=== PATIENT | male | born 1970 | race Caucasian/White ===

== ENCOUNTER 2017-03-13 17:04 | Emergency (ER) | payer OTHER ==
[2017-03-13 17:11] VITALS: RESP 18; O2SAT 98
--- NOTE | 2017-03-13 17:27 | C.PDOC ---
History Of Present Illness 46 y/o male presents to the ED with complains of intermittent, sharp shooting pain to groin which onset today. Pain radiates to right abdomen. Pt reports similar symptoms in the past with kidney stones. Denies fever, chills, dysuria, hematuria, nausea, vomiting, dizziness or any other complaints. Time Seen by Provider: 03/13/17 17:17 Chief Complaint (Nursing): Male Genitourinary History Per: Patient History/Exam Limitations: no limitations Onset/Duration Of Symptoms: Hrs, Intermittent Episodes Current Symptoms Are (Timing): Still Present Severity: Severe Quality Of Discomfort: Sharp Associated Symptoms: denies: Fever, Chills, Nausea, Vomiting, Back Pain, Urinary Symptoms Alleviating Factors: None Recent travel outside of the [place]: No Past Medical History Reviewed: Historical Data, Nursing Documentation, Vital Signs Vital Signs: Last Vital Signs Temp 97.6 F 03/13/17 17:08 Pulse 73 03/13/17 17:08 Resp 18 03/13/17 17:08 BP 131/82 03/13/17 17:08 Pulse Ox 98 03/13/17 18:30 Family History: States: Unknown Family Hx Review Of Systems Except As Marked, All Systems Reviewed And Found Negative. Constitutional: Negative for: Fever, Chills Gastrointestinal: Negative for: Nausea, Vomiting Genitourinary: Positive for: Other (groin pain radiating to right abdomen). Negative for: Dysuria, Hematuria Musculoskeletal: Negative for: Back Pain Neurological: Negative for: Dizziness Physical Exam - Physical Exam Appears: Non-toxic, No Acute Distress Skin: Warm, Dry, No Rash Head: Atraumatic, Normacephalic Chest: Symmetrical Cardiovascular: Rhythm Regular, No Murmur Respiratory: Normal Breath Sounds, No Rales, No Rhonchi, No Wheezing Gastrointestinal/Abdominal: Soft, Tenderness (mild RLQ), No Guarding, No Rebound Back: No CVA Tenderness Male Genital: Testicular Tenderness (mild bilateral), No Testicular Swelling, No Inguinal Swelling, No Scrotal Swelling, Other (Mild right groin tenderness, no swelling or redness. No penile discharge.) Extremity: Normal ROM Extremity: Bilateral: Atraumatic Neurological/Psych: Oriented x3 ED Course And Treatment - Laboratory Results Result Diagrams: 03/13/17 17:47 03/13/17 17:47 O2 Sat by Pulse Oximetry: 98 (room air) Pulse Ox Interpretation: Normal - CT Scan/US CT abdomen Other Rad Studies (CT/US): Read By Radiologist, Radiology Report Reviewed CT/US Interpretation: EXAM: CT Abdomen and Pelvis Without Intravenous Contrast. CLINICAL HISTORY: 46 years old, male; Pain; Abdominal pain and other : Ho. Renal stone; Additional info: Abd pain. TECHNIQUE: Axial computed tomography images of the abdomen and pelvis without intravenous contrast. This. CT exam was performed using one or more of the following dose reduction techniques: automated. exposure control, adjustment of the mA and/or kV according to patient size, and/or use of iterative. reconstruction technique. Coronal and sagittal reformatted images were created and reviewed. COMPARISON: No relevant prior studies available. FINDINGS: Lower thorax: Lung bases show no pulmonary infiltration or lobar pneumonia. Lung bases show no. pulmonary infiltration or lobar pneumonia. ABDOMEN: Liver: Unremarkable liver is normal in attenuation without lesions. Unremarkable liver is normal in. attenuation without lesions. Gallbladder and bile ducts: The gallbladder is normal. Pancreas: Unremarkable pancreas, no lesions, surrounding fluid or inflammation. Unremarkable. pancreas, no lesions, surrounding fluid or inflammation. No ductal dilation. Spleen: Unremarkable. No splenomegaly. Adrenals: Adrenal glands are normal. Adrenal glands are normal. Kidneys and ureters: There is faint calcification in the medullary pyramids, consistent with medullary. sponge kidney. Right renal hilus demonstrates small calcific foci likely vascular in etiology. Calcific. focus is present the left kidney, likely a nonobstructing stone. Stomach and bowel: The stomach is normal without wall thickening or mucosal edema. Bowel loops. appear within normal limits, no signs of wall thickening, mucosal edema, or bowel distention. The. stomach is normal without wall thickening or mucosal edema. Appendix: A normal appendix is identified. A normal appendix seen in the right lower quadrant. PELVIS: Bladder: The bladder is decompressed but otherwise normal. No stones. Reproductive: Unremarkable as visualized. ABDOMEN and PELVIS: Intraperitoneal space: Unremarkable. No free air. No significant fluid collection. Bones/joints : No acute fracture. No dislocation. Soft tissues: Small fat-containing paraumbilical hernia is present. Vasculature: The aorta and IVC appear within normal limits. Lymph nodes: Unremarkable. No enlarged lymph nodes. IMPRESSION : No evidence for bowel herniation, bowel obstruction, colitis, appendicitis or diverticulitis. No gross ureteral stone or obstructive uropathy is visualized. Left nephrolithiasis. Bilateral mild nephrocalcinosis. Thank you for allowing us to participate in the care of your patient. Dictated and Authenticated by: Patric Peters MD. 03/13/2017 6:18 PM Eastern Time ([place] & [place]) Medical Decision Making Medical Decision Making: Differential dx: kidney stone, UTI, epididymal orchitis Plan: CT abdomen, labs, UA, IV fluids, motrin, tylenol Disposition - Disposition Referrals: Clinic,Med Surg [Primary Care Provider] - Rk Whitley Jr., MD [Staff Provider] - Disposition: HOME/ ROUTINE Disposition Time: 18:24 Condition: STABLE Prescriptions: Ibuprofen [Motrin] 600 mg PO TID #24 tab Tamsulosin [Flomax] 0.4 mg PO DAILY #10 cap Instructions: Renal Colic (ED), Acute Hematuria (ED) Forms: General Discharge Instructions - POA Present On Arrival: None - Clinical Impression Clinical Impression: Hematuria, Renal colic on right side - Scribe Statement The provider has reviewed the documentation as recorded by the Gayatri Luque Provider Attestation: All medical record entries made by the Gayatri were at my direction and personally dictated by me. I have reviewed the chart and agree that the record accurately reflects my personal performance of the history, physical exam, medical decision making, and the department course for this patient. I have also personally directed, reviewed, and agree with the discharge instructions and disposition.
[2017-03-13] MEDS ORDERED: Sodium Chloride 0.9% 1,000 ML IV ONE (17:34)
[2017-03-13 17:53] LABS: BASO # 0.1 K/uL (0.0-0.2); BASO % 1.3 % (0.0-2.0); EOS # 0.2 K/uL (0.0-0.7); EOS % 3.8 % (0.0-4.0); HEMATOCRIT 43.8 % (35.0-51.0); LYMPH # 1.8 K/uL (1.0-4.3); LYMPH % 41.6 % (20.0-40.0); MEAN CELL VOLUME 90.2 fL (80.0-94.0); MEAN CORPUSCULAR HEMOGLOBIN 30.4 pg (27.0-31.0); MEAN CORPUSCULAR HGB CONC 33.7 g/dL (33.0-37.0); MEAN PLATELET VOLUME 8.9 fL (7.2-11.7); MONO # 0.4 K/uL (0.0-0.8); MONO % 10.2 % (0.0-10.0); NRBC % 0.1 % (0.0-2.0); RED CELL DISTRIBUTION WIDTH 12.8 % (11.5-14.5); WHITE BLOOD COUNT 4.3 K/uL (4.8-10.8)
[2017-03-13 17:58] LABS: CHLORIDE 94 mmol/L (98-107); SODIUM 139 mmol/L (132-148)
[2017-03-13 18:01] LABS: ALB/GLOB RATIO 1.4 (1.0-2.1); ALKALINE PHOSPHATASE 56 U/L (38-126); AST/SGOT 32 U/L (17-59); BILIRUBIN,TOTAL 0.9 mg/dL (0.2-1.3); BLOOD UREA NITROGEN 16 mg/dL (9-20); CALCIUM 9.6 mg/dl (8.6-10.4); CARBON DIOXIDE 29 mmol/L (22-30); GFR AFRICAN-AMERICAN > 60; GLUCOSE,RANDOM 83 mg/dL (75-110); TOTAL PROTEIN 8.1 g/dL (6.3-8.3)
[2017-03-13 18:02] LABS: ALT/SGPT 25 U/L (21-72)
[2017-03-13 18:08] LABS: RBC URINE 488 /hpf (0-3); URINE BACTERIA RARE (<OCC); URINE BILIRUBIN NEGATIVE (NEGATIVE); URINE COLOR Yellow (YELLOW); URINE GLUCOSE (UA) NORMAL (Normal); URINE KETONE 1+ mg/dL (NEGATIVE); URINE LEUKOCYTE ESTERASE NEG Leu/uL (Negative); URINE PROTEIN 1+ mg/dL (NEGATIVE); URINE UROBILINOGEN NORMAL mg/dL (0.2-1.0); WBC URINE 2 /hpf (0-5)
[2017-03-13 18:09] LABS: URINE BLOOD 3+ (NEGATIVE)
[2017-03-13] MEDS ORDERED: Sodium Chloride 0.9% 1,000 ML ONE (18:10)
[2017-03-13 19:09] VITALS: BP 119/73; PULSE 61; TEMP 97.8
--- NOTE | 2017-03-14 08:25 | CT ---
PROCEDURE: CT Abdomen and Pelvis without intravenous contrast HISTORY: abd pain COMPARISON: None. TECHNIQUE: 2.5 mm axial acquisition and display. Coronal and sagittal reconstructions. Contrast Dose: Unenhanced study. Neither oral nor intravenous contrast administered. Radiation dose: Total exam DLP = 535.08 mGy-cm. This CT exam was performed using one or more of the following dose reduction techniques: Automated exposure control, adjustment of the mA and/or kV according to patient size, and/or use of iterative reconstruction technique. FINDINGS: LOWER THORAX: Unremarkable. LIVER: Unremarkable. No gross lesion or ductal dilatation. GALLBLADDER AND BILE DUCTS: Unremarkable. PANCREAS: Unremarkable. No gross lesion or ductal dilatation. SPLEEN: Unremarkable. ADRENALS: Unremarkable. No mass. KIDNEYS AND URETERS: Nephrocalcinosis. Innumerable tiny less than 2 mm calculi. Additional punctate calcification right renal collecting system. 5 x 6 mm calculus midpole region left kidney. VASCULATURE: Unremarkable. No aortic aneurysm. BOWEL: Unremarkable. No obstruction. No gross mural thickening. APPENDIX: Unremarkable. Normal appendix. PERITONEUM: Unremarkable. No free fluid. No free air. LYMPH NODES: Unremarkable. No enlarged lymph nodes. BLADDER: Unremarkable. REPRODUCTIVE: Unremarkable. BONES: No acute fracture. OTHER FINDINGS: None. IMPRESSION: Nephrolithiasis/nephrocalcinosis without evidence of obstructive uropathy. Concordant results (preliminary interpretation) provided by [employer]. Procedure Completed: 18:03 Preliminary ([employer]) Report: Dictated and Authenticated: 18:18 Final Interpretation: 08:23. March 14, 2017.
== END 2017-03-13 19:09 | disposition home or self-care (01) ==
LOC: SUPCPDRO 17:04 → C.ER 17:04
DX: N20.0 Calculus of kidney (principal); Z87.442 Personal history of urinary calculi; R31.9 Hematuria, unspecified
CPT/HCPCS: 74176; 80053; 81001; 85025; 96360; 99284; J7040

== ENCOUNTER 2017-03-14 04:08 | Observation (INO) | payer OTHER ==
--- NOTE | 2017-03-14 04:42 | C.PDOC ---
History Of Present Illness 46 year old male presents to the ED with right suprapubic and groin pain radiating to right testicle after being seen yesterday at [facility] ED for right sided abdominal pain and was diagnosed with kidney stones. Patient states pain mildly improved after the ED visit yesterday and took Motrin with no relief but denies vomiting, diarrhea, cough, fever, penile discharge, dysuria, or heamturia. Time Seen by Provider: 03/14/17 04:38 Chief Complaint (Nursing): Abdominal Pain History Per: Patient History/Exam Limitations: no limitations Onset/Duration Of Symptoms: Hrs Current Symptoms Are (Timing): Still Present Location Of Pain/Discomfort: Suprapubic, Other (groin and testicular area ) Radiation Of Pain To:: Other (right testicle ) Quality Of Discomfort: "Pain" Associated Symptoms: denies: Fever, Chills, Nausea, Vomiting, Diarrhea Past Medical History Reviewed: Historical Data, Nursing Documentation, Vital Signs Vital Signs: Last Vital Signs Temp 98 F 03/14/17 06:14 Pulse 72 03/14/17 06:14 Resp 18 03/14/17 06:14 BP 151/87 H 03/14/17 06:14 Pulse Ox 96 03/14/17 06:14 Family History: States: Unknown Family Hx - Social History Hx Alcohol Use: Yes Hx Substance Use: No - Immunization History Hx Tetanus Toxoid Vaccination: No Hx Influenza Vaccination: No Hx Pneumococcal Vaccination: No Review Of Systems Constitutional: Negative for: Fever, Chills, Sweats Cardiovascular: Negative for: Chest Pain, Palpitations Respiratory: Negative for: Cough, Shortness of Breath Gastrointestinal: Positive for: Abdominal Pain (right suprapubic, right groin pain). Negative for: Nausea, Vomiting, Diarrhea Genitourinary: Negative for: Dysuria, Hematuria, Penile Discharge Physical Exam - Physical Exam Appears: Non-toxic, No Acute Distress Skin: Warm, Dry Head: Atraumatic Eye(s): bilateral: PERRL Oral Mucosa: Moist Neck: Supple Chest: Symmetrical, No Deformity Cardiovascular: Rhythm Regular Respiratory: No Accessory Muscle Use, No Rales, No Rhonchi, No Stridor, No Wheezing Gastrointestinal/Abdominal: Soft, Tenderness (teenderness to right suprapubic, right inguinal, and testicular region ), No Distention, No Guarding, No Rebound , No Hernia (no buldge ) Back: No CVA Tenderness Extremity: Normal ROM, No Tenderness Neurological/Psych: Oriented x3 ED Course And Treatment - Laboratory Results Result Diagrams: 03/14/17 05:15 03/14/17 05:15 O2 Sat by Pulse Oximetry: 100 (room air ) Progress Note: Urinalysis, Testicular US ordered and performed. Patient given morphine and hydromorphone. Disposition Counseled Patient/Family Regarding: Diagnosis, Need For Followup, Rx Given - Disposition Disposition Time: 07:07 Condition: STABLE - Clinical Impression Clinical Impression: Testicular pain, right - Scribe Statement The provider has reviewed the documentation as recorded by the Scribe More Gan All medical record entries made by the Scribe were at my direction and personally dictated by me. I have reviewed the chart and agree that the record accurately reflects my personal performance of the history, physical exam, medical decision making, and the department course for this patient. I have also personally directed, reviewed, and agree with the discharge instructions and disposition. Physician Patient Turnover Patient Signed Over To: Nena Law Handoff Comments: Pending Testicular US
[2017-03-14] MEDS ORDERED: Sodium Chloride 0.9% 500 ML IV ONE (04:47)
[2017-03-14] MEDS ORDERED: Morphine 4 MG/ML VIAL ONE (05:01)
[2017-03-14] MEDS ORDERED: Sodium Chloride 0.9% 1,000 ML ONE ×2 (05:01→09:55)
[2017-03-14 05:18] LABS: BASO # 0.1 K/uL (0.0-0.2); BASO % 0.9 % (0.0-2.0); EOS # 0.2 K/uL (0.0-0.7); EOS % 3.5 % (0.0-4.0); HEMATOCRIT 42.9 % (35.0-51.0); LYMPH # 1.9 K/uL (1.0-4.3); MEAN CELL VOLUME 89.5 fL (80.0-94.0); MEAN CORPUSCULAR HEMOGLOBIN 30.5 pg (27.0-31.0); MEAN PLATELET VOLUME 8.8 fL (7.2-11.7); MONO # 0.5 K/uL (0.0-0.8); MONO % 7.5 % (0.0-10.0); RED CELL DISTRIBUTION WIDTH 12.8 % (11.5-14.5); WHITE BLOOD COUNT 6.6 K/uL (4.8-10.8)
[2017-03-14 05:34] LABS: CHLORIDE 98 mmol/L (98-107); POTASSIUM 3.7 mmol/L (3.6-5.2); SODIUM 137 mmol/L (132-148)
[2017-03-14 05:36] LABS: BILIRUBIN,TOTAL 0.2 mg/dL (0.2-1.3); GFR AFRICAN-AMERICAN > 60
[2017-03-14 05:37] LABS: ALB/GLOB RATIO 1.7 (1.0-2.1); ALKALINE PHOSPHATASE 55 U/L (38-126); ALT/SGPT 30 U/L (21-72); AST/SGOT 30 U/L (17-59); BLOOD UREA NITROGEN 19 mg/dL (9-20); CARBON DIOXIDE 27 mmol/L (22-30); GLUCOSE,RANDOM 88 mg/dL (75-110); TOTAL PROTEIN 7.8 g/dL (6.3-8.3)
[2017-03-14 05:38] LABS: CALCIUM 9.1 mg/dl (8.6-10.4)
[2017-03-14 08:58] LABS: RBC URINE 156 /hpf (0-3); URINE BILIRUBIN NEGATIVE (NEGATIVE); URINE BLOOD 3+ (NEGATIVE); URINE COLOR Yellow (YELLOW); URINE GLUCOSE (UA) NORMAL (Normal); URINE KETONE 1+ mg/dL (NEGATIVE); URINE LEUKOCYTE ESTERASE NEG Leu/uL (Negative); URINE PROTEIN NEGATIVE (NEGATIVE); URINE UROBILINOGEN NORMAL mg/dL (0.2-1.0); WBC URINE 1 /hpf (0-5)
[2017-03-14] MEDS ORDERED: Sodium Chloride 0.9% 1,000 ML IV ONE (09:35)
[2017-03-14] MEDS ORDERED: HYDROmorphone 1 mg/ml ISec IVP STA (09:35)
[2017-03-14] MEDS ORDERED: HYDROmorphone 1 mg/ml ISec ONE (09:54)
[2017-03-14] MEDS: Dextrose 5%/0.45% NS 1,000 ML IV SCH (11:12)
--- NOTE | 2017-03-14 11:13 | US ---
HISTORY: Right scrotal pain TECHNIQUE: Realtime sonography through the scrotum with color and doppler flow. COMPARISON: None Available. FINDINGS: RIGHT TESTICLE: Measures 2.1 x 4.9 cm. Normal echotexture and flow. RIGHT EPIDIDYMIS: Epididymal head measures 1.1 cm. Grossly unremarkable appearance with normal flow.Incidental finding(s): 4 mm epididymal cyst LEFT TESTICLE: Measures 2.2 x 4.7 cm. Normal echotexture and flow. LEFT EPIDIDYMIS: Epididymal head measures 1.3 x 1.5 cm. Grossly unremarkable appearance with normal flow.Incidental finding(s): Two simple epididymal cyst 4 x 5 mm and 4 x 6 mm. HYDROCELE: Bilateral, small right larger than left. VARICOCELE: None. OTHER FINDINGS: None. IMPRESSION: Negative study for epididymitis, orchitis or torsion. Additional benign and/or incidental findings described above.
--- NOTE | 2017-03-14 12:51 | CP.PCM.HP ---
History of Present Illness - History of Present Illness History of Present Illness: 46 years old male patient presents to the emergency department with complaint of right suprapubic and right-sided groin pain that radiates to right testicle. Patient was seen at the [facility] yesterday for right-sided abdominal pain and diagnosed with kidney stones. Patient took more train no pain relief and denies nausea, vomiting, fever, dysuria. Present on Admission - Present on Admission Any Indicators Present on Admission: No Past Patient History - Past Social History Smoking Status: Never Smoked - PSYCHIATRIC Hx Substance Use: No - SURGICAL HISTORY Hx Surgeries: Yes Other/Comment: sinus surgery - ANESTHESIA Hx Anesthesia: Yes Hx Anesthesia Reactions: No Meds Home Medications: Home Medication List Medication Instructions Recorded Confirmed Type Ibuprofen [Motrin Tab] 600 mg PO TID #90 tab 03/16/17 Rx Tamsulosin [Flomax] 0.4 mg PO DAILY #30 cap 03/16/17 Rx Allergies/Adverse Reactions: Allergies Allergy/AdvReac Type Severity Reaction Status Date / Time No Known Allergies Allergy Verified 03/16/17 22:46 Physical Exam - Constitutional Appears: Well - Head Exam Head Exam: ATRAUMATIC, NORMAL INSPECTION, NORMOCEPHALIC - Eye Exam Eye Exam: EOMI, Normal appearance, PERRL Pupil Exam: NORMAL ACCOMODATION, PERRL - ENT Exam ENT Exam: Mucous Membranes Moist, Normal Exam - Neck Exam Neck exam: Positive for: Normal Inspection - Respiratory Exam Respiratory Exam: Decreased Breath Sounds - Cardiovascular Exam Cardiovascular Exam: REGULAR RHYTHM, +S1, +S2 - GI/Abdominal Exam GI & Abdominal Exam: Diminished Bowel Sounds, Soft - Rectal Exam Rectal Exam: Deferred Results - Vital Signs Recent Vital Signs: Last Vital Signs Temp 98 F 03/14/17 06:14 Pulse 82 03/14/17 09:58 Resp 16 03/14/17 09:58 BP 128/76 03/14/17 09:58 Pulse Ox 97 03/14/17 09:58 - Labs Result Diagrams: 03/16/17 07:12 03/16/17 07:12 Assessment & Plan (1) Hematuria Status: Acute (2) Intractable pain Status: Acute (3) Kidney stone Status: Acute (4) Renal colic on right side Status: Acute (5) Renal colic on right side Status: Acute - Assessment and Plan (Free Text) Plan: protonix lovenox urology flomax urine culture no need fo rantbitoic as per urology ivfluid
[2017-03-14] MEDS ORDERED: HYDROmorphone 1 mg/ml ISec IVP SCH (14:00)
[2017-03-14] MEDS ORDERED: HYDROmorphone 1 mg/ml ISec IVP PRN (18:23)
[2017-03-14] MEDS: HYDROmorphone 1 mg/ml ISec IVP PRN (22:34)
[2017-03-15] MEDS: Dextrose 5%/0.45% NS 1,000 ML IV SCH ×3 (00:22→19:00)
[2017-03-15] MEDS: HYDROmorphone 1 mg/ml ISec IVP PRN ×5 (02:49→22:12)
[2017-03-15] MEDS: Pantoprazole 40 mg EC Tab PO SCH (09:25)
[2017-03-15 11:53] LABS: BASO % 0.5 % (0.0-2.0); EOS % 0.7 % (0.0-4.0); HEMATOCRIT 43.8 % (35.0-51.0); LYMPH # 0.8 K/uL (1.0-4.3); LYMPH % 12.7 % (20.0-40.0); MEAN CORPUSCULAR HEMOGLOBIN 30.7 pg (27.0-31.0); MEAN CORPUSCULAR HGB CONC 34.5 g/dL (33.0-37.0); MEAN PLATELET VOLUME 9.5 fL (7.2-11.7); MONO # 0.6 K/uL (0.0-0.8); MONO % 8.6 % (0.0-10.0); RED CELL DISTRIBUTION WIDTH 12.8 % (11.5-14.5); WHITE BLOOD COUNT 6.7 K/uL (4.8-10.8)
[2017-03-15 12:09] LABS: CHLORIDE 95 mmol/L (98-107)
[2017-03-15 12:10] LABS: POTASSIUM 3.7 mmol/L (3.6-5.2); SODIUM 137 mmol/L (132-148)
[2017-03-15 12:12] LABS: ALB/GLOB RATIO 1.2 (1.0-2.1); ALKALINE PHOSPHATASE 59 U/L (38-126); ALT/SGPT 24 U/L (21-72); AST/SGOT 33 U/L (17-59); BILIRUBIN,TOTAL 0.7 mg/dL (0.2-1.3); BLOOD UREA NITROGEN 11 mg/dL (9-20); CARBON DIOXIDE 31 mmol/L (22-30); GFR AFRICAN-AMERICAN > 60; GLUCOSE,RANDOM 105 mg/dL (75-110); TOTAL PROTEIN 8.2 g/dL (6.3-8.3)
[2017-03-15 12:13] LABS: CALCIUM 8.8 mg/dl (8.6-10.4)
--- NOTE | 2017-03-15 13:31 | CP.PCM.PN ---
Subjective - Date & Time of Evaluation Date of Evaluation: 03/15/17 Time of Evaluation: 13:31 - Subjective Subjective: 59 year old male with right sided flank pain was in er 03/13/17 dischareged returned with renewesd pain radiating ti groin us testicle neg for epididiidmitis or tosion.. pt continues to have severe pain. Suggest Repeat ct to see if stones have moved into obstructing position. Objective - Vital Signs/Intake and Output Vital Signs (last 24 hours): Temp Pulse Resp BP Pulse Ox 98.5 F 67 18 132/55 L 96 03/15/17 08:50 03/15/17 08:50 03/15/17 08:50 03/15/17 08:50 03/15/17 08:50 Intake and Output: 03/15/17 03/15/17 06:59 18:59 Intake Total 1220 Balance 1220 - Medications Medications: Current Medications Hydromorphone HCl (Dilaudid) 1 mg IVP Q4H PRN PRN Reason: Pain, moderate (4-7) Last Admin: 03/15/17 11:02 Dose: 1 mg Dextrose/Sodium Chloride (Dextrose 5%/0.45% Ns 1000 Ml) 1,000 mls @ 75 mls/hr IV .[id number] [facility] Last Admin: 03/15/17 00:22 Dose: 75 mls/hr Pantoprazole Sodium (Protonix Ec Tab) 40 mg PO DAILY [facility] Last Admin: 03/15/17 09:25 Dose: 40 mg Pneumococcal Polyvalent Vaccine (Pneumovax 23 Vaccine) 0.5 ml IM .ONCE ONE Stop: 03/16/17 10:01 - Labs Labs: 03/15/17 11:30 03/15/17 11:30
--- NOTE | 2017-03-15 14:04 | CP.PCM.PN ---
Subjective - Date & Time of Evaluation Date of Evaluation: 03/15/17 Time of Evaluation: 13:20 - Subjective Subjective: clinically same Objective - Vital Signs/Intake and Output Vital Signs (last 24 hours): Temp Pulse Resp BP Pulse Ox 98.5 F 67 18 132/55 L 96 03/15/17 08:50 03/15/17 08:50 03/15/17 08:50 03/15/17 08:50 03/15/17 08:50 Intake and Output: 03/15/17 03/15/17 06:59 18:59 Intake Total 1220 Balance 1220 - Medications Medications: Current Medications Hydromorphone HCl (Dilaudid) 1 mg IVP Q4H PRN PRN Reason: Pain, moderate (4-7) Last Admin: 03/15/17 11:02 Dose: 1 mg Dextrose/Sodium Chloride (Dextrose 5%/0.45% Ns 1000 Ml) 1,000 mls @ 75 mls/hr IV .[id number] [facility] Last Admin: 03/15/17 00:22 Dose: 75 mls/hr Pantoprazole Sodium (Protonix Ec Tab) 40 mg PO DAILY [facility] Last Admin: 03/15/17 09:25 Dose: 40 mg Pneumococcal Polyvalent Vaccine (Pneumovax 23 Vaccine) 0.5 ml IM .ONCE ONE Stop: 03/16/17 10:01 Tamsulosin HCl (Flomax) 0.4 mg PO DAILY [facility] Last Admin: 03/15/17 13:48 Dose: 0.4 mg - Labs Labs: 03/15/17 11:30 03/15/17 11:30 - Constitutional Appears: Well - Head Exam Head Exam: ATRAUMATIC, NORMAL INSPECTION, NORMOCEPHALIC - Eye Exam Eye Exam: EOMI, Normal appearance, PERRL Pupil Exam: NORMAL ACCOMODATION, PERRL - ENT Exam ENT Exam: Mucous Membranes Moist, Normal Exam - Neck Exam Neck Exam: Full ROM, Normal Inspection. absent: Lymphadenopathy - Respiratory Exam Respiratory Exam: Decreased Breath Sounds - Cardiovascular Exam Cardiovascular Exam: REGULAR RHYTHM, +S1, +S2 - GI/Abdominal Exam GI & Abdominal Exam: Soft, Diminished Bowel Sounds - Rectal Exam Rectal Exam: Deferred Assessment and Plan (1) Hematuria Status: Acute (2) Intractable pain Status: Acute (3) Kidney stone Status: Acute (4) Renal colic on right side Status: Acute (5) Renal colic on right side Status: Acute - Assessment and Plan (Free Text) Plan: Urology consult IV fluid Flomax Dilaudid Protonix Lovenox Urine culture
--- NOTE | 2017-03-15 14:47 | CP.PCM.PN ---
Subjective - Date & Time of Evaluation Date of Evaluation: 03/15/17 Time of Evaluation: 10:00 - Subjective Subjective: PGY2 on medicine Dr. Thorne service: Pt seen and examined at bedside this morning. Pt said his pain persisted at RLQ to right groin. Denied fever or chill. Objective - Vital Signs/Intake and Output Vital Signs (last 24 hours): Temp Pulse Resp BP Pulse Ox 98.5 F 67 18 132/55 L 96 03/15/17 08:50 03/15/17 08:50 03/15/17 08:50 03/15/17 08:50 03/15/17 08:50 Intake and Output: 03/15/17 03/15/17 06:59 18:59 Intake Total 1220 Balance 1220 - Medications Medications: Current Medications Hydromorphone HCl (Dilaudid) 1 mg IVP Q4H PRN PRN Reason: Pain, moderate (4-7) Last Admin: 03/15/17 11:02 Dose: 1 mg Dextrose/Sodium Chloride (Dextrose 5%/0.45% Ns 1000 Ml) 1,000 mls @ 75 mls/hr IV .[id number] [facility] Last Admin: 03/15/17 00:22 Dose: 75 mls/hr Pantoprazole Sodium (Protonix Ec Tab) 40 mg PO DAILY [facility] Last Admin: 03/15/17 09:25 Dose: 40 mg Pneumococcal Polyvalent Vaccine (Pneumovax 23 Vaccine) 0.5 ml IM .ONCE ONE Stop: 03/16/17 10:01 Tamsulosin HCl (Flomax) 0.4 mg PO DAILY [facility] Last Admin: 03/15/17 13:48 Dose: 0.4 mg - Labs Labs: 03/15/17 11:30 03/15/17 11:30 - Constitutional Appears: Non-toxic, No Acute Distress - Head Exam Head Exam: NORMOCEPHALIC - Eye Exam Eye Exam: Normal appearance - ENT Exam ENT Exam: Mucous Membranes Moist - Respiratory Exam Respiratory Exam: Clear to Ausculation Bilateral, NORMAL BREATHING PATTERN. absent: Rhonchi, Wheezes - Cardiovascular Exam Cardiovascular Exam: REGULAR RHYTHM, +S1, +S2. absent: Gallop, Rubs - GI/Abdominal Exam GI & Abdominal Exam: Guarding (RLQ), Soft, Tenderness (RLQ), Normal Bowel Sounds - Neurological Exam Neurological Exam: Alert, Awake, Oriented x3 - Psychiatric Exam Psychiatric exam: Normal Mood - Skin Skin Exam: Dry, Intact Assessment and Plan - Assessment and Plan (Free Text) Assessment: Suprapubic tenderness CT showed right nonobstructing 6mm stone per report. Testicular ultrasound showed simple epididymal cyst and bilateral hydrocele R>L per report. UA showed RBC and blood, no infection. Urology Dr. Whitley consulted, help appreciated. Dilaudid 1mg IV q4 PRN. Toradol 30mg IV q6 PRN. Flomax 0.4mg PO daily. F/U repeat CT. Prophylactic measure Protonix, SCD
--- NOTE | 2017-03-15 15:51 | CT ---
PROCEDURE: CT Abdomen and Pelvis without intravenous contrast HISTORY: renal colic begining after last ct COMPARISON: 03/13/2017 TECHNIQUE: Technique. Contrast Dose: Radiation dose: Total exam DLP = 470 mGy-cm. This CT exam was performed using one or more of the following dose reduction techniques: Automated exposure control, adjustment of the mA and/or kV according to patient size, and/or use of iterative reconstruction technique. FINDINGS: LOWER THORAX: Small left lower lobe infiltrate. LIVER: Unremarkable. No gross lesion or ductal dilatation. GALLBLADDER AND BILE DUCTS: Unremarkable. PANCREAS: Unremarkable. No gross lesion or ductal dilatation. SPLEEN: Unremarkable. ADRENALS: Unremarkable. No mass. KIDNEYS AND URETERS: Interval migration of a 2-3 millimeter calculus into the distal ureter. Associated right hydroureter and mild right hydronephrosis with perinephric and periureteral fat infiltration. Stable roughly 1 centimeter calculus in the mid left kidney. VASCULATURE: Unremarkable. No aortic aneurysm. BOWEL: Unremarkable. No obstruction. No gross mural thickening. APPENDIX: Unremarkable. Normal appendix. PERITONEUM: Unremarkable. No free fluid. No free air. LYMPH NODES: Unremarkable. No enlarged lymph nodes. BLADDER: Unremarkable. REPRODUCTIVE: Unremarkable. BONES: No acute fracture. OTHER FINDINGS: None. IMPRESSION: Interval migration of a 2-3 millimeter calculus into the distal ureter. Associated right hydroureter and mild right hydronephrosis with perinephric and periureteral fat infiltration. Stable roughly 1 centimeter calculus in the mid left kidney.
[2017-03-15] MEDS ORDERED: Moxifloxacin IV 400mg/250ml NS 400 MG/250 ML BAG IVPB SCH (19:00)
[2017-03-16 07:19] LABS: BASO # 0.1 K/uL (0.0-0.2); BASO % 1.6 % (0.0-2.0); EOS # 0.2 K/uL (0.0-0.7); LYMPH # 1.8 K/uL (1.0-4.3); MEAN CELL VOLUME 89.5 fL (80.0-94.0); MEAN CORPUSCULAR HEMOGLOBIN 30.4 pg (27.0-31.0); MEAN PLATELET VOLUME 8.9 fL (7.2-11.7); MONO # 0.6 K/uL (0.0-0.8); MONO % 11.1 % (0.0-10.0); NRBC % 0.1 % (0.0-2.0); RED CELL DISTRIBUTION WIDTH 12.9 % (11.5-14.5); WHITE BLOOD COUNT 5.2 K/uL (4.8-10.8)
--- NOTE | 2017-03-16 07:28 | CP.PCM.PN ---
Subjective - Date & Time of Evaluation Date of Evaluation: 03/16/17 Time of Evaluation: 10:00 - Subjective Subjective: PGY2 on medicine Dr. Thoren service: Pt seen and examined at bedside this morning. Pt reports pain improved with both Dilaudid and Toradol. Pt hasn't report any stone passing yet. No other complaints at this time. Pt to be discharge home today. Pt instructed to make appointment and follow up with Dr. Thorne tomorrow. Pt also instructed to come back to ED if pain is unbearable, and return to ED on night if no stone has been passed in order to have procedure on Wednesday to remove it, which already has been scheduled with OR. Pt understood instructions. Objective - Vital Signs/Intake and Output Vital Signs (last 24 hours): Temp Pulse Resp BP Pulse Ox 98.1 F 69 20 117/71 96 03/15/17 23:40 03/15/17 23:40 03/15/17 23:40 03/15/17 23:40 03/15/17 23:40 Intake and Output: 03/16/17 03/16/17 06:59 18:59 Intake Total 750 Balance 750 - Medications Medications: Current Medications Hydromorphone HCl (Dilaudid) 1 mg IVP Q4H PRN PRN Reason: Pain, severe (8-10) Last Admin: 03/15/17 22:12 Dose: 1 mg Dextrose/Sodium Chloride (Dextrose 5%/0.45% Ns 1000 Ml) 1,000 mls @ 75 mls/hr IV .[id number] [facility] Last Admin: 03/15/17 19:00 Dose: 75 mls/hr Moxifloxacin HCl (Avelox Iv 400mg/250ml Ns) 400 mg in 250 mls @ 167 mls/hr IVPB Q24H [facility] Last Admin: 03/15/17 19:48 Dose: 167 mls/hr Ketorolac Tromethamine (Toradol) 30 mg IVP Q6 PRN PRN Reason: moderate pain Last Admin: 03/16/17 01:37 Dose: 30 mg Pantoprazole Sodium (Protonix Ec Tab) 40 mg PO DAILY [facility] Last Admin: 03/15/17 09:25 Dose: 40 mg Pneumococcal Polyvalent Vaccine (Pneumovax 23 Vaccine) 0.5 ml IM .ONCE ONE Stop: 03/16/17 10:01 Tamsulosin HCl (Flomax) 0.4 mg PO DAILY [facility] Last Admin: 03/15/17 13:48 Dose: 0.4 mg - Labs Labs: 03/15/17 11:30 03/15/17 11:30 - Constitutional Appears: Non-toxic, No Acute Distress - Head Exam Head Exam: NORMAL INSPECTION, NORMOCEPHALIC - Eye Exam Eye Exam: Normal appearance Pupil Exam: NORMAL ACCOMODATION - ENT Exam ENT Exam: Mucous Membranes Moist - Respiratory Exam Respiratory Exam: Clear to Ausculation Bilateral, NORMAL BREATHING PATTERN. absent: Rhonchi, Wheezes - Cardiovascular Exam Cardiovascular Exam: REGULAR RHYTHM, +S1, +S2. absent: Gallop, Rubs - GI/Abdominal Exam GI & Abdominal Exam: Soft, Tenderness, Normal Bowel Sounds Additional comments: diffuse lower abdomen on palpation - Neurological Exam Neurological Exam: Alert, Awake, Oriented x3 - Psychiatric Exam Psychiatric exam: Normal Affect, Normal Mood - Skin Skin Exam: Dry, Intact Assessment and Plan - Assessment and Plan (Free Text) Assessment: Suprapubic tenderness CT showed right nonobstructing 6mm stone per report. Testicular ultrasound showed simple epididymal cyst and bilateral hydrocele R>L per report. UA showed RBC and blood, no infection. Urology Dr. Whitley consulted, help appreciated. Repeat CT scan showed stable left 1cm stone mid left kidney and 2-3mm calculus distal ureter. Pt discharged with Percocet 325/5mg PO q6H PRN #20, Motrin 600mg PO TID PRN, Flomax 0.4mg PO daily. Instructed to return if pain persisted and if no stone strained by night. Procedure scheduled on Wednesday, will inform OR if patient comes.
[2017-03-16] MEDS: HYDROmorphone 1 mg/ml ISec IVP PRN ×3 (07:52→16:21)
[2017-03-16 08:30] LABS: CHLORIDE 99 mmol/L (98-107); POTASSIUM 3.9 mmol/L (3.6-5.2); SODIUM 137 mmol/L (132-148)
[2017-03-16 08:32] LABS: BILIRUBIN,TOTAL 0.7 mg/dL (0.2-1.3); CARBON DIOXIDE 29 mmol/L (22-30); GFR AFRICAN-AMERICAN > 60
[2017-03-16 08:33] LABS: ALB/GLOB RATIO 1.3 (1.0-2.1); ALKALINE PHOSPHATASE 44 U/L (38-126); ALT/SGPT 24 U/L (21-72); AST/SGOT 28 U/L (17-59); BLOOD UREA NITROGEN 9 mg/dL (9-20); CALCIUM 8.7 mg/dl (8.6-10.4); GLUCOSE,RANDOM 93 mg/dL (75-110); TOTAL PROTEIN 6.9 g/dL (6.3-8.3)
[2017-03-16] MEDS ORDERED: Pneumococcal 23-Valent Vaccine IM ONE (10:00)
[2017-03-16] MEDS: Pantoprazole 40 mg EC Tab PO SCH (10:12)
--- NOTE | 2017-03-16 12:09 | CP.PCM.PN ---
Subjective - Date & Time of Evaluation Date of Evaluation: 03/16/17 Time of Evaluation: 12:06 - Subjective Subjective: Repeat ct shows that a 2mm calculi has migrated into distal ureter ,this should pass w iv fluids pain meds and flomax, suggest strain all urine for stone,if stone fails to passby fri, will place stent if pt still has sig pain. Gutierrez Objective - Vital Signs/Intake and Output Vital Signs (last 24 hours): Temp Pulse Resp BP Pulse Ox 97.7 F 65 20 130/78 97 03/16/17 11:34 03/16/17 11:34 03/16/17 11:34 03/16/17 11:34 03/16/17 11:34 Intake and Output: 03/16/17 03/16/17 06:59 18:59 Intake Total 750 200 Balance 750 200 - Medications Medications: Current Medications Hydromorphone HCl (Dilaudid) 1 mg IVP Q4H PRN PRN Reason: Pain, severe (8-10) Last Admin: 03/16/17 11:53 Dose: 1 mg Dextrose/Sodium Chloride (Dextrose 5%/0.45% Ns 1000 Ml) 1,000 mls @ 75 mls/hr IV .[id number] [facility] Last Admin: 03/15/17 19:00 Dose: 75 mls/hr Moxifloxacin HCl (Avelox Iv 400mg/250ml Ns) 400 mg in 250 mls @ 167 mls/hr IVPB Q24H [facility] Last Admin: 03/15/17 19:48 Dose: 167 mls/hr Ketorolac Tromethamine (Toradol) 30 mg IVP Q6 PRN PRN Reason: moderate pain Last Admin: 03/16/17 01:37 Dose: 30 mg Pantoprazole Sodium (Protonix Ec Tab) 40 mg PO DAILY [facility] Last Admin: 03/16/17 10:12 Dose: 40 mg Tamsulosin HCl (Flomax) 0.4 mg PO DAILY [facility] Last Admin: 03/16/17 10:12 Dose: 0.4 mg - Labs Labs: 03/16/17 07:12 03/16/17 07:12
--- NOTE | 2017-03-16 15:45 | CP.PCM.PN ---
Subjective - Date & Time of Evaluation Date of Evaluation: 03/16/17 Time of Evaluation: 09:40 - Subjective Subjective: clinically same Objective - Vital Signs/Intake and Output Vital Signs (last 24 hours): Temp Pulse Resp BP Pulse Ox 97.7 F 65 20 130/78 97 03/16/17 11:34 03/16/17 11:34 03/16/17 11:34 03/16/17 11:34 03/16/17 11:34 Intake and Output: 03/16/17 03/16/17 06:59 18:59 Intake Total 750 1180 Balance 750 1180 - Medications Medications: Current Medications Hydromorphone HCl (Dilaudid) 1 mg IVP Q4H PRN PRN Reason: Pain, severe (8-10) Last Admin: 03/16/17 11:53 Dose: 1 mg Dextrose/Sodium Chloride (Dextrose 5%/0.45% Ns 1000 Ml) 1,000 mls @ 75 mls/hr IV .[id number] [facility] Last Admin: 03/15/17 19:00 Dose: 75 mls/hr Moxifloxacin HCl (Avelox Iv 400mg/250ml Ns) 400 mg in 250 mls @ 167 mls/hr IVPB Q24H [facility] Last Admin: 03/15/17 19:48 Dose: 167 mls/hr Ketorolac Tromethamine (Toradol) 30 mg IVP Q6 PRN PRN Reason: moderate pain Last Admin: 03/16/17 01:37 Dose: 30 mg Pantoprazole Sodium (Protonix Ec Tab) 40 mg PO DAILY [facility] Last Admin: 03/16/17 10:12 Dose: 40 mg Tamsulosin HCl (Flomax) 0.4 mg PO DAILY [facility] Last Admin: 03/16/17 10:12 Dose: 0.4 mg - Labs Labs: 03/16/17 07:12 03/16/17 07:12 - Constitutional Appears: Well - Head Exam Head Exam: ATRAUMATIC, NORMAL INSPECTION, NORMOCEPHALIC - Eye Exam Eye Exam: EOMI, Normal appearance, PERRL Pupil Exam: NORMAL ACCOMODATION, PERRL - ENT Exam ENT Exam: Mucous Membranes Moist, Normal Exam - Neck Exam Neck Exam: Full ROM, Normal Inspection. absent: Lymphadenopathy - Respiratory Exam Respiratory Exam: Decreased Breath Sounds - Cardiovascular Exam Cardiovascular Exam: REGULAR RHYTHM, +S1, +S2 - GI/Abdominal Exam GI & Abdominal Exam: Soft, Diminished Bowel Sounds - Rectal Exam Rectal Exam: Deferred Assessment and Plan (1) Hematuria Status: Acute (2) Intractable pain Status: Acute (3) Kidney stone Status: Acute (4) Renal colic on right side Status: Acute (5) Renal colic on right side Status: Acute - Assessment and Plan (Free Text) Plan: Patient to be discharged today Follow-up with me tomorrow Continue pain meds Continue fluids Surgery is schedule on Wednesday
[2017-03-16 16:49] VITALS: BP 116/64; PULSE 62; RESP 19; TEMP 98.2; O2SAT 100
== END 2017-03-16 19:30 | disposition home or self-care (01) ==
LOC: C.ER 04:08 → C.9E 10:45 → C.6T 14:57 → C.3T 03-16 10:02
PROVIDERS: ADMIT Internal Medicine Nephrology; ATTEND Internal Medicine Nephrology
DX: N20.1 Calculus of ureter (principal); N43.3 Hydrocele, unspecified
CPT/HCPCS: 36415; 74176; 76870; 80053; 81001; 85025; 87086; 96361; 96365; 96366; 96375; 96376; 99285; G0378; J1170; J1885; J2270; J2280; J7040; J7042

== ENCOUNTER 2017-03-16 22:29 | Inpatient (IN) | payer OTHER ==
[2017-03-16 23:36] LABS: RBC URINE 9 /hpf (0-3); URINE BACTERIA RARE (<OCC); URINE BILIRUBIN NEGATIVE (NEGATIVE); URINE BLOOD 3+ (NEGATIVE); URINE COLOR Yellow (YELLOW); URINE GLUCOSE (UA) NORMAL (Normal); URINE KETONE NEGATIVE (NEGATIVE); URINE LEUKOCYTE ESTERASE TRACE Leu/uL (Negative); URINE PROTEIN NEGATIVE (NEGATIVE); URINE UROBILINOGEN NORMAL mg/dL (0.2-1.0); WBC URINE 17 /hpf (0-5)
--- NOTE | 2017-03-17 00:21 | C.PDOC ---
History Of Present Illness Pt was discharge from this hospital this evening. Pt is passing a 2-3mm ureteral stone on the right side. Time Seen by Provider: 03/16/17 22:56 Chief Complaint (Nursing): Abdominal Pain History Per: Patient Onset/Duration Of Symptoms: Days (3) Current Symptoms Are (Timing): Still Present Severity: Severe Location Of Pain/Discomfort: RLQ Quality Of Discomfort: "Pain" Exacerbating Factors: None Alleviating Factors: None Additional History Per: Prior Records Past Medical History Reviewed: Historical Data, Nursing Documentation, Vital Signs Vital Signs: Last Vital Signs Temp 99 F 03/16/17 22:36 Pulse 61 03/16/17 22:36 Resp 16 03/16/17 22:36 BP 156/91 H 03/16/17 22:36 Pulse Ox 97 03/16/17 22:36 - Medical History PMH: Kidney Stones Surgical History: No Surg Hx Family History: States: Unknown Family Hx - Social History Hx Alcohol Use: Yes (social) Hx Substance Use: No - Immunization History Hx Tetanus Toxoid Vaccination: No Hx Influenza Vaccination: No Hx Pneumococcal Vaccination: No Review Of Systems Except As Marked, All Systems Reviewed And Found Negative. Constitutional: Negative for: Fever, Weakness Cardiovascular: Negative for: Chest Pain Respiratory: Negative for: Shortness of Breath Gastrointestinal: Negative for: Vomiting Genitourinary: Negative for: Hematuria Musculoskeletal: Positive for: Back Pain. Negative for: Neck Pain Skin: Negative for: Rash Neurological: Negative for: Weakness, Numbness, Seizures, Altered Mental Status Physical Exam - Physical Exam Appears: Non-toxic, No Acute Distress, Other (Uncomfortable) Skin: Normal Color, Warm, Dry, No Rash Head: Atraumatic, Normacephalic Eye(s): bilateral: PERRL, EOMI Neck: Normal ROM, Supple Cardiovascular: Rhythm Regular Respiratory: Normal Breath Sounds, No Accessory Muscle Use Gastrointestinal/Abdominal: Soft, No Tenderness Back: No CVA Tenderness Extremity: Normal ROM Neurological/Psych: Oriented x3, Normal Motor, Normal Sensation ED Course And Treatment O2 Sat by Pulse Oximetry: 97 Pulse Ox Interpretation: Normal Disposition Discussed With : Tunde Thorne Comment: He wants to re-admit pt onto his service. He gave admitting orders to the nurse. Doctor Will See Patient In The: Hospital Counseled Patient/Family Regarding: Studies Performed, Diagnosis - Disposition Disposition: HOSPITALIZED Disposition Time: 00:24 Condition: STABLE - Clinical Impression Clinical Impression: Renal colic on right side
[2017-03-17] MEDS: Moxifloxacin IV 400mg/250ml NS 400 MG/250 ML BAG IVPB SCH (01:03)
[2017-03-17] MEDS ORDERED: Moxifloxacin IV 400mg/250ml NS 400 MG/250 ML BAG IVPB ONE (01:04)
[2017-03-17 01:13] LABS: INR 1.2
[2017-03-17] MEDS: HYDROmorphone 1 mg/ml ISec IVP PRN ×2 (09:46→13:45)
[2017-03-17] MEDS ORDERED: Enoxaparin 40 mg Syringe SC SCH (10:00)
--- NOTE | 2017-03-17 10:49 | CP.PCM.PN ---
Subjective - Date & Time of Evaluation Date of Evaluation: 03/17/17 Time of Evaluation: 09:00 - Subjective Subjective: PGY2 on medicine Dr. Thorne service: Pt seen and examined at bedside this morning. Pt came back this morning after getting discharged yesterday due to RLQ pain secondary to stones, uncontrolled with oral pain meds. Pt has no other complaints. Pt to have OR on Wednesday if no stone has passed by then. Objective - Vital Signs/Intake and Output Vital Signs (last 24 hours): Temp Pulse Resp BP Pulse Ox 97.8 F 52 L 18 116/68 97 03/17/17 07:00 03/17/17 07:00 03/17/17 07:00 03/17/17 07:00 03/17/17 07:00 Intake and Output: 03/17/17 03/17/17 06:59 18:59 Intake Total 200 240 Balance 200 240 - Medications Medications: Current Medications Enoxaparin Sodium (Lovenox) 40 mg SC DAILY [facility] Last Admin: 03/17/17 09:46 Dose: 40 mg Hydromorphone HCl (Dilaudid) 1 mg IVP Q4H PRN PRN Reason: Pain, severe (8-10) Last Admin: 03/17/17 09:46 Dose: 1 mg Moxifloxacin HCl (Avelox Iv 400mg/250ml Ns) 400 mg in 250 mls @ 167 mls/hr IVPB Q24H [facility] Last Admin: 03/17/17 01:03 Dose: 167 mls/hr Ketorolac Tromethamine (Toradol) 30 mg IVP Q6 PRN PRN Reason: moderate pain Pantoprazole Sodium (Protonix Inj) 40 mg IVP DAILY [facility] Last Admin: 03/17/17 09:46 Dose: 40 mg Pneumococcal Polyvalent Vaccine (Pneumovax 23 Vaccine) 0.5 ml IM .ONCE ONE Stop: 03/19/17 10:01 - Labs Labs: PT 13.2 SECONDS (9.7-12.2) H 03/17/17 01:03 INR 1.2 03/17/17 01:03 APTT 28 SECONDS (21-34) 03/17/17 01:03 - Constitutional Appears: Non-toxic, No Acute Distress - Head Exam Head Exam: NORMAL INSPECTION, NORMOCEPHALIC - Eye Exam Eye Exam: Normal appearance Pupil Exam: NORMAL ACCOMODATION - Respiratory Exam Respiratory Exam: Clear to Ausculation Bilateral, NORMAL BREATHING PATTERN. absent: Rhonchi, Wheezes - Cardiovascular Exam Cardiovascular Exam: REGULAR RHYTHM, +S1, +S2 - GI/Abdominal Exam GI & Abdominal Exam: Guarding (RLQ), Soft, Tenderness (RLQ tender on palpation) , Normal Bowel Sounds. absent: Distended - Neurological Exam Neurological Exam: Alert, Awake, Oriented x3 - Psychiatric Exam Psychiatric exam: Normal Mood - Skin Skin Exam: Intact Assessment and Plan - Assessment and Plan (Free Text) Assessment: Suprapubic tenderness CT showed right nonobstructing 6mm stone per report. Testicular ultrasound showed simple epididymal cyst and bilateral hydrocele R>L per report. UA showed RBC and blood, no infection. Urology Dr. Whitley consulted, help appreciated. Repeat CT scan showed stable left 1cm stone mid left kidney and 2-3mm calculus distal ureter. Dilaudid 1mg IV q4H PRN and Toradol 30mg IV q6H PRN. Avelox 400mg IV daily. Procedure scheduled on Wednesday. Prophylactic measure Lovenox hold for tomorrow, SCD, Protonix. Management per Dr. Thorne
--- NOTE | 2017-03-17 18:01 | CP.PCM.HP ---
History of Present Illness - History of Present Illness History of Present Illness: 46 years old male patient with past history of kidney stones presented with severe colicky pain in the right lumbar quadrant. Patient was discharged from hospital yesterday evening due to right lower quadrant pain because of stones, pain is uncontrolled with oral medications. No fever nausea vomiting. No hematuria. Present on Admission - Present on Admission Any Indicators Present on Admission: No Past Patient History - Past Medical History & Family History Past Medical History?: Yes - Past Social History Smoking Status: Unknown If Ever Smoked - CARDIAC Hx Cardiac Disorders: No - PULMONARY Hx Respiratory Disorders: No - NEUROLOGICAL Hx Neurological Disorder: No - HEENT Hx HEENT Problems: No - RENAL Hx Chronic Kidney Disease: Yes Hx Kidney Stones: Yes - ENDOCRINE/METABOLIC Hx Endocrine Disorders: No - HEMATOLOGICAL/ONCOLOGICAL Hx Blood Disorders: No - INTEGUMENTARY Hx Dermatological Problems: No - MUSCULOSKELETAL/RHEUMATOLOGICAL Hx Musculoskeletal Disorders: No Hx Falls: No - GASTROINTESTINAL Hx Gastrointestinal Disorders: No - GENITOURINARY/GYNECOLOGICAL Hx Genitourinary Disorders: No - PSYCHIATRIC Hx Psychophysiologic Disorder: No Hx Substance Use: No - SURGICAL HISTORY Hx Surgeries: Yes Hx Orthopedic Surgery: Yes Other/Comment: sinus surgery - ANESTHESIA Hx Anesthesia: Yes Hx Anesthesia Reactions: No Hx Malignant Hyperthermia: No Has any member of the family had a problem w/ anesthesia?: No Meds Home Medications: Home Medication List Medication Instructions Recorded Confirmed Type Moxifloxacin [Avelox] 400 mg PO DAILY #5 tab 03/19/17 Rx oxyCODONE/Acetaminophen [Percocet 1 ea PO Q6H PRN #12 tab 03/19/17 Rx 5/325 mg Tab] Allergies/Adverse Reactions: Allergies Allergy/AdvReac Type Severity Reaction Status Date / Time No Known Allergies Allergy Verified 03/16/17 22:46 Physical Exam - Constitutional Appears: Well - Head Exam Head Exam: ATRAUMATIC, NORMAL INSPECTION, NORMOCEPHALIC - Eye Exam Eye Exam: EOMI, Normal appearance, PERRL Pupil Exam: NORMAL ACCOMODATION, PERRL - ENT Exam ENT Exam: Mucous Membranes Moist, Normal Exam - Neck Exam Neck exam: Positive for: Normal Inspection - Respiratory Exam Respiratory Exam: Decreased Breath Sounds - Cardiovascular Exam Cardiovascular Exam: REGULAR RHYTHM, +S1, +S2 - GI/Abdominal Exam GI & Abdominal Exam: Diminished Bowel Sounds, Soft - Rectal Exam Rectal Exam: Deferred Results - Vital Signs Recent Vital Signs: Last Vital Signs Temp 97.8 F 03/17/17 07:00 Pulse 52 L 03/17/17 07:00 Resp 18 03/17/17 07:00 BP 116/68 03/17/17 07:00 Pulse Ox 97 03/17/17 07:00 - Labs Result Diagrams: 03/19/17 07:07 03/19/17 07:07 Labs: Laboratory Results - last 24 hr 03/17/17 01:03 PT 13.2 H INR 1.2 APTT 28 Assessment & Plan (1) Hematuria Status: Acute (2) Intractable pain Status: Acute (3) Kidney stone Status: Acute (4) Renal colic on right side Status: Acute (5) Renal colic on right side Status: Acute - Assessment and Plan (Free Text) Plan: Labs reviewed Pain meds IV moxifloxacin Lovenox encourage oral fluids Urology consult Urine culture results
[2017-03-18] MEDS: HYDROmorphone 1 mg/ml ISec IVP PRN (00:01)
[2017-03-18] MEDS: Moxifloxacin IV 400mg/250ml NS 400 MG/250 ML BAG IVPB SCH (00:04)
[2017-03-18 07:17] LABS: BASO % 1.3 % (0.0-2.0); EOS # 0.5 K/uL (0.0-0.7); EOS % 13.5 % (0.0-4.0); HEMATOCRIT 39.7 % (35.0-51.0); LYMPH # 1.8 K/uL (1.0-4.3); LYMPH % 48.1 % (20.0-40.0); MEAN CELL VOLUME 88.7 fL (80.0-94.0); MEAN CORPUSCULAR HEMOGLOBIN 30.7 pg (27.0-31.0); MEAN CORPUSCULAR HGB CONC 34.6 g/dL (33.0-37.0); MONO # 0.4 K/uL (0.0-0.8); NRBC % 0.1 % (0.0-2.0); RED CELL DISTRIBUTION WIDTH 12.6 % (11.5-14.5); WHITE BLOOD COUNT 3.7 K/uL (4.8-10.8)
[2017-03-18 07:40] LABS: CHLORIDE 97 mmol/L (98-107); POTASSIUM 3.8 mmol/L (3.6-5.2); SODIUM 138 mmol/L (132-148)
[2017-03-18 07:42] LABS: ALB/GLOB RATIO 1.1 (1.0-2.1); ALKALINE PHOSPHATASE 43 U/L (38-126); ALT/SGPT 20 U/L (21-72); AST/SGOT 20 U/L (17-59); BILIRUBIN,TOTAL 0.8 mg/dL (0.2-1.3); BLOOD UREA NITROGEN 11 mg/dL (9-20); CARBON DIOXIDE 34 mmol/L (22-30); GFR AFRICAN-AMERICAN > 60; TOTAL PROTEIN 6.8 g/dL (6.3-8.3)
[2017-03-18 07:43] LABS: CALCIUM 8.9 mg/dl (8.6-10.4); GLUCOSE,RANDOM 85 mg/dL (75-110)
--- NOTE | 2017-03-18 09:10 | CP.PCM.PN ---
Subjective - Date & Time of Evaluation Date of Evaluation: 03/18/17 Time of Evaluation: 10:00 - Subjective Subjective: clinically same Objective - Vital Signs/Intake and Output Vital Signs (last 24 hours): Temp Pulse Resp BP Pulse Ox 98.3 F 59 L 20 115/71 97 03/18/17 07:00 03/18/17 07:00 03/18/17 07:00 03/18/17 07:00 03/18/17 07:00 Intake and Output: 03/18/17 03/18/17 06:59 18:59 Intake Total 300 300 Output Total 300 Balance 0 300 - Medications Medications: Current Medications Hydromorphone HCl (Dilaudid) 1 mg IVP Q4H PRN PRN Reason: Pain, severe (8-10) Last Admin: 03/18/17 00:01 Dose: 1 mg Moxifloxacin HCl (Avelox Iv 400mg/250ml Ns) 400 mg in 250 mls @ 167 mls/hr IVPB Q24H [facility] Last Admin: 03/18/17 00:04 Dose: 167 mls/hr Ketorolac Tromethamine (Toradol) 30 mg IVP Q6 PRN PRN Reason: moderate pain Last Admin: 03/17/17 17:30 Dose: 30 mg Pantoprazole Sodium (Protonix Inj) 40 mg IVP DAILY [facility] Last Admin: 03/17/17 09:46 Dose: 40 mg Pneumococcal Polyvalent Vaccine (Pneumovax 23 Vaccine) 0.5 ml IM .ONCE ONE Stop: 03/19/17 10:01 - Labs Labs: 03/18/17 07:04 03/18/17 07:04 PT 13.2 SECONDS (9.7-12.2) H 03/17/17 01:03 INR 1.2 03/17/17 01:03 APTT 28 SECONDS (21-34) 03/17/17 01:03 - Constitutional Appears: Well - Head Exam Head Exam: ATRAUMATIC, NORMAL INSPECTION, NORMOCEPHALIC - Eye Exam Eye Exam: EOMI, Normal appearance, PERRL Pupil Exam: NORMAL ACCOMODATION, PERRL - ENT Exam ENT Exam: Mucous Membranes Moist, Normal Exam - Neck Exam Neck Exam: Full ROM, Normal Inspection. absent: Lymphadenopathy - Respiratory Exam Respiratory Exam: Decreased Breath Sounds - Cardiovascular Exam Cardiovascular Exam: REGULAR RHYTHM, +S1, +S2 - GI/Abdominal Exam GI & Abdominal Exam: Soft, Diminished Bowel Sounds - Rectal Exam Rectal Exam: Deferred Assessment and Plan (1) Hematuria Status: Acute (2) Intractable pain Status: Acute (3) Kidney stone Status: Acute (4) Renal colic on right side Status: Acute (5) Renal colic on right side Status: Acute - Assessment and Plan (Free Text) Plan: Consult nephrology CT Positive for stone Dilaudid Avelox Toradol Procedure scheduled on Wednesday
--- NOTE | 2017-03-18 13:00 | CP.PCM.PN ---
Subjective - Date & Time of Evaluation Date of Evaluation: 03/18/17 Time of Evaluation: 09:50 - Subjective Subjective: Medicine Note- Dr. Thorne's service Patient was seen and examined at bedside. Patient reports no acute complaints at this time. He states he has some lower abdominal/ pelvic/groin region at times, sometimes it becomes a cramping pain, but none at the moment. Patient reports he has been filtering his urine and has not passed a stone yet. No events overnight, per nursing. Objective - Vital Signs/Intake and Output Vital Signs (last 24 hours): Temp Pulse Resp BP Pulse Ox 98.3 F 59 L 20 115/71 97 03/18/17 07:00 03/18/17 07:00 03/18/17 07:00 03/18/17 07:00 03/18/17 07:00 Intake and Output: 03/18/17 03/18/17 06:59 18:59 Intake Total 300 300 Output Total 300 Balance 0 300 - Medications Medications: Current Medications Hydromorphone HCl (Dilaudid) 1 mg IVP Q4H PRN PRN Reason: Pain, severe (8-10) Last Admin: 03/18/17 00:01 Dose: 1 mg Moxifloxacin HCl (Avelox Iv 400mg/250ml Ns) 400 mg in 250 mls @ 167 mls/hr IVPB Q24H [facility] Last Admin: 03/18/17 00:04 Dose: 167 mls/hr Ketorolac Tromethamine (Toradol) 30 mg IVP Q6 PRN PRN Reason: moderate pain Last Admin: 03/17/17 17:30 Dose: 30 mg Pantoprazole Sodium (Protonix Inj) 40 mg IVP DAILY [facility] Last Admin: 03/18/17 10:54 Dose: 40 mg Pneumococcal Polyvalent Vaccine (Pneumovax 23 Vaccine) 0.5 ml IM .ONCE ONE Stop: 03/19/17 10:01 - Labs Labs: 03/18/17 07:04 03/18/17 07:04 PT 13.2 SECONDS (9.7-12.2) H 03/17/17 01:03 INR 1.2 03/17/17 01:03 APTT 28 SECONDS (21-34) 03/17/17 01:03 - Constitutional Appears: Non-toxic, No Acute Distress - Head Exam Head Exam: ATRAUMATIC, NORMAL INSPECTION, NORMOCEPHALIC - Eye Exam Pupil Exam: NORMAL ACCOMODATION - ENT Exam ENT Exam: Mucous Membranes Moist - Respiratory Exam Respiratory Exam: Clear to Ausculation Bilateral, NORMAL BREATHING PATTERN. absent: Prolonged Expiratory Phase, Rales, Rhonchi, Wheezes - Cardiovascular Exam Cardiovascular Exam: REGULAR RHYTHM, +S1, +S2 - GI/Abdominal Exam GI & Abdominal Exam: Soft, Normal Bowel Sounds. absent: Tenderness, Diminished Bowel Sounds, Hernia, Hypoactive Bowel Sounds - Extremities Exam Extremities Exam: Normal Capillary Refill, Normal Inspection - Neurological Exam Neurological Exam: Alert, Awake, Oriented x3 - Psychiatric Exam Psychiatric exam: Normal Affect, Normal Mood - Skin Skin Exam: Dry, Intact, Normal Color, Warm Assessment and Plan - Assessment and Plan (Free Text) Assessment: Suprapubic tenderness CT showed right nonobstructing 6mm stone per report. Testicular ultrasound showed simple epididymal cyst and bilateral hydrocele R>L per report. UA showed RBC and blood, no infection. Urology Dr. Whitley consulted, help appreciated. Repeat CT scan showed stable left 1cm stone mid left kidney and 2-3mm calculus distal ureter. Dilaudid 1mg IV q4H PRN and Toradol 30mg IV q6H PRN. Avelox 400mg IV daily. Procedure scheduled on Wednesday. Prophylactic measure Lovenox hold for tomorrow, SCD, Protonix. Management per Dr. Thorne
[2017-03-19] MEDS: Moxifloxacin IV 400mg/250ml NS 400 MG/250 ML BAG IVPB SCH (00:38)
[2017-03-19 07:27] LABS: BASO % 1.2 % (0.0-2.0); EOS # 0.5 K/uL (0.0-0.7); EOS % 12.9 % (0.0-4.0); HEMATOCRIT 40.5 % (35.0-51.0); LYMPH # 1.5 K/uL (1.0-4.3); LYMPH % 39.3 % (20.0-40.0); MEAN CELL VOLUME 88.2 fL (80.0-94.0); MEAN CORPUSCULAR HEMOGLOBIN 30.8 pg (27.0-31.0); MEAN CORPUSCULAR HGB CONC 34.9 g/dL (33.0-37.0); MEAN PLATELET VOLUME 9.3 fL (7.2-11.7); MONO # 0.4 K/uL (0.0-0.8); MONO % 11.3 % (0.0-10.0); RED CELL DISTRIBUTION WIDTH 12.5 % (11.5-14.5); WHITE BLOOD COUNT 3.8 K/uL (4.8-10.8)
[2017-03-19 07:59] LABS: CHLORIDE 97 mmol/L (98-107); POTASSIUM 3.8 mmol/L (3.6-5.2); SODIUM 138 mmol/L (132-148)
[2017-03-19 08:01] LABS: AST/SGOT 22 U/L (17-59); BILIRUBIN,TOTAL 0.8 mg/dL (0.2-1.3); CARBON DIOXIDE 31 mmol/L (22-30); GFR AFRICAN-AMERICAN > 60
[2017-03-19 08:02] LABS: ALB/GLOB RATIO 1.2 (1.0-2.1); ALKALINE PHOSPHATASE 41 U/L (38-126); ALT/SGPT 14 U/L (21-72); BLOOD UREA NITROGEN 14 mg/dL (9-20); CALCIUM 9.1 mg/dl (8.6-10.4); GLUCOSE,RANDOM 86 mg/dL (75-110); TOTAL PROTEIN 7.1 g/dL (6.3-8.3)
[2017-03-19] MEDS ORDERED: Pneumococcal 23-Valent Vaccine IM ONE (10:00)
--- NOTE | 2017-03-19 10:13 | CP.PCM.PN ---
Subjective - Date & Time of Evaluation Date of Evaluation: 03/19/17 Time of Evaluation: 10:00 - Subjective Subjective: clinically same Objective - Vital Signs/Intake and Output Vital Signs (last 24 hours): Temp Pulse Resp BP Pulse Ox 97.7 F 64 20 117/70 95 03/19/17 08:37 03/19/17 08:37 03/19/17 08:37 03/19/17 08:37 03/19/17 08:37 Intake and Output: 03/19/17 03/19/17 06:59 18:59 Intake Total 300 200 Output Total 600 Balance -300 200 - Medications Medications: Current Medications Hydromorphone HCl (Dilaudid) 1 mg IVP Q4H PRN PRN Reason: Pain, severe (8-10) Last Admin: 03/18/17 00:01 Dose: 1 mg Moxifloxacin HCl (Avelox Iv 400mg/250ml Ns) 400 mg in 250 mls @ 167 mls/hr IVPB Q24H [facility] Last Admin: 03/19/17 00:38 Dose: 167 mls/hr Ketorolac Tromethamine (Toradol) 30 mg IVP Q6 PRN PRN Reason: moderate pain Last Admin: 03/19/17 09:44 Dose: 30 mg Pantoprazole Sodium (Protonix Inj) 40 mg IVP DAILY [facility] Last Admin: 03/19/17 09:44 Dose: 40 mg - Labs Labs: 03/19/17 07:07 03/19/17 07:07 PT 13.2 SECONDS (9.7-12.2) H 03/17/17 01:03 INR 1.2 03/17/17 01:03 APTT 28 SECONDS (21-34) 03/17/17 01:03 - Constitutional Appears: Well - Head Exam Head Exam: ATRAUMATIC, NORMAL INSPECTION, NORMOCEPHALIC - Eye Exam Eye Exam: EOMI, Normal appearance, PERRL Pupil Exam: NORMAL ACCOMODATION, PERRL - ENT Exam ENT Exam: Mucous Membranes Moist, Normal Exam - Neck Exam Neck Exam: Full ROM, Normal Inspection. absent: Lymphadenopathy - Respiratory Exam Respiratory Exam: Decreased Breath Sounds - Cardiovascular Exam Cardiovascular Exam: REGULAR RHYTHM, +S1, +S2 - GI/Abdominal Exam GI & Abdominal Exam: Soft, Diminished Bowel Sounds - Rectal Exam Rectal Exam: Deferred Assessment and Plan (1) Hematuria Status: Acute (2) Intractable pain Status: Acute (3) Kidney stone Status: Acute (4) Renal colic on right side Status: Acute (5) Renal colic on right side Status: Acute - Assessment and Plan (Free Text) Plan: Procedure scheduled on Wednesday Patient is to be discharged home and follow-up with Dr. Whitley in 1 week
--- NOTE | 2017-03-19 10:15 | CP.PCM.PN ---
Subjective - Date & Time of Evaluation Date of Evaluation: 03/19/17 Time of Evaluation: 08:30 - Subjective Subjective: Medicine Note- Dr. Thorne's service Patient was seen and examined at bedside. Patient reports no acute complaints at this time. He says he can feel something near his lower abdominal and groin, but says it is not painful. He says he has no noticed any stones being passed through his urine as it passes through the filter. No events overnight per nursing. Patient reports he was told he is scheduled for procedure around 11ish. Objective - Vital Signs/Intake and Output Vital Signs (last 24 hours): Temp Pulse Resp BP Pulse Ox 97.7 F 64 20 117/70 95 03/19/17 08:37 03/19/17 08:37 03/19/17 08:37 03/19/17 08:37 03/19/17 08:37 Intake and Output: 03/19/17 03/19/17 06:59 18:59 Intake Total 300 200 Output Total 600 Balance -300 200 - Medications Medications: Current Medications Hydromorphone HCl (Dilaudid) 1 mg IVP Q4H PRN PRN Reason: Pain, severe (8-10) Last Admin: 03/18/17 00:01 Dose: 1 mg Moxifloxacin HCl (Avelox Iv 400mg/250ml Ns) 400 mg in 250 mls @ 167 mls/hr IVPB Q24H [facility] Last Admin: 03/19/17 00:38 Dose: 167 mls/hr Ketorolac Tromethamine (Toradol) 30 mg IVP Q6 PRN PRN Reason: moderate pain Last Admin: 03/19/17 09:44 Dose: 30 mg Pantoprazole Sodium (Protonix Inj) 40 mg IVP DAILY [facility] Last Admin: 03/19/17 09:44 Dose: 40 mg - Labs Labs: 03/19/17 07:07 03/19/17 07:07 PT 13.2 SECONDS (9.7-12.2) H 03/17/17 01:03 INR 1.2 03/17/17 01:03 APTT 28 SECONDS (21-34) 03/17/17 01:03 - Constitutional Appears: Non-toxic, No Acute Distress - Head Exam Head Exam: ATRAUMATIC, NORMAL INSPECTION, NORMOCEPHALIC - Eye Exam Pupil Exam: NORMAL ACCOMODATION, PERRL - ENT Exam ENT Exam: Mucous Membranes Moist - Respiratory Exam Respiratory Exam: Clear to Ausculation Bilateral, NORMAL BREATHING PATTERN. absent: Prolonged Expiratory Phase, Rales, Rhonchi, Wheezes - Cardiovascular Exam Cardiovascular Exam: REGULAR RHYTHM, +S1, +S2 - GI/Abdominal Exam GI & Abdominal Exam: Soft, Normal Bowel Sounds. absent: Firm, Guarding, Tenderness, Diminished Bowel Sounds, Hypoactive Bowel Sounds - Extremities Exam Extremities Exam: Normal Capillary Refill, Normal Inspection - Neurological Exam Neurological Exam: Alert, Awake, Oriented x3 - Psychiatric Exam Psychiatric exam: Normal Affect, Normal Mood - Skin Skin Exam: Dry, Intact, Normal Color, Warm Assessment and Plan - Assessment and Plan (Free Text) Assessment: Suprapubic tenderness CT showed right nonobstructing 6mm stone per report. Testicular ultrasound showed simple epididymal cyst and bilateral hydrocele R>L per report. UA showed RBC and blood, no infection. Urology Dr. Whitley consulted, help appreciated. Repeat CT scan showed stable left 1cm stone mid left kidney and 2-3mm calculus distal ureter. Dilaudid 1mg IV q4H PRN and Toradol 30mg IV q6H PRN. Avelox 400mg IV daily. Procedure scheduled on Wednesday. Prophylactic measure Lovenox hold for tomorrow, SCD, Protonix. Management per Dr. Thorne Discussed case with Dr. Whitley, patient is okay to DC home and followup in [address] Whitley's office Patient is to be discharged as per Dr. Thorne.
[2017-03-19] MEDS ORDERED: Ciprofloxacin 400mg/200ml D5W 0 MG/0 ML BAG IVPB ONE (11:16)
[2017-03-19] MEDS ORDERED: Gentamicin 80 mg in 0.9% NS 160 MG/200 ML BAG IVPB ONE (11:16)
[2017-03-19] MEDS ORDERED: Lidocaine 2% Jelly (Uro-Jet) ONE (11:17)
[2017-03-19] MEDS ORDERED: Iohexol 240 (50 ml) ONE (11:17)
[2017-03-19] MEDS ORDERED: Propofol 10 mg/ml Inj (20 ML) ONE ×2 (11:25→11:37)
[2017-03-19] MEDS ORDERED: Midazolam 2 MG/2 ML VIAL ONE (11:25)
[2017-03-19] MEDS ORDERED: HYDROmorphone 0.5 mg/0.5 ml ISec IVP PRN (11:40)
[2017-03-19] MEDS ORDERED: Lidocaine Hydrochloride 5 ML INJ ONE (11:53)
--- NOTE | 2017-03-19 12:26 | PCM.SURG1 ---
Surgeon's Initial Post Op Note - Surgeon's Notes Surgeon: Gutierrez General Duty Nurse: vashti Type of Anesthesia: General LMA Anesthesia Administered By: staff Pre-Operative Diagnosis: lower ureteral calculi Operative Findings: same Post-Operative Diagnosis: same Operation Performed: ureteroscopy laser lithotripsy/Cysto insert stent?\Removal of stone fragment Specimen/Specimens Removed: stone fragment Estimated Blood Loss: EBL {In ML}: 0 Blood Products Given: N/A Drains Used: No Drains Post-Op Condition: Good Date of Surgery/Procedure: 03/19/17 Time of Surgery/Procedure: 12:26
--- NOTE | 2017-03-19 12:49 | RAD ---
PROCEDURE: Fluoroscopy up to 1 hr. HISTORY: RIGHT Hydronephrosis COMPARISON: None TECHNIQUE: Standard protocol for this study/examination. FINDINGS: Submitted images from the current procedure: 4.0 Total fluoroscopic time (continuous mode) utilized during the procedure: 45.9 seconds. IMPRESSION: Less than 1 hr fluoroscopic time utilized during performance of the procedure.
--- NOTE | 2017-03-19 14:46 | OP ---
PROCEDURE DATE: 03/19/2017 PREOPERATIVE DIAGNOSIS: Lower ureteral calculi. POSTOPERATIVE DIAGNOSIS: Lower ureteral calculi. PROCEDURE: Ureteroscopy, laser lithotripsy and stone fragment extraction. FINDINGS: A stone impacted in the right ureteral orifice. DESCRIPTION OF PROCEDURE: The patient was draped and prepped in the usual manner. He was cystoscope d with a #21 Storz panendoscope. The stone was visualized protruding from the right ureteral orifice . Attempts to grasp it were futile. The stone was then pushed back into the lower ureter. The guid ewire was passed up past the stone and the ureteroscope was inserted in the ureter. The laser fiber was used to fragment the stone into multiple pieces. The basket was used to grab a small fragment fo r analysis. The guidewire was left in place, the scope was backed out and a 7-Upper Sorbian double-J stent was then passed over the original guidewire and the stent was deployed properly. The patient tolerat ed the procedure well and was sent to the recovery room in good condition. He was made aware that he has a stent in place and it must be removed. Rk Whitley MD cc: [id number] TT: 03/19/2017 14:45:18 [email or web address]
[2017-03-19 15:22] VITALS: PULSE 51
[2017-03-19 17:29] VITALS: BP 134/78; RESP 20; TEMP 97.8; O2SAT 97
[2017-03-19] MEDS ORDERED: Oxycodone/Acetaminophen 5/325 mg Tab PO STA (17:52)
== END 2017-03-19 20:00 | disposition home or self-care (01) | DRG 670 ==
LOC: C.ER 22:29 → C.3T 03-17 00:25
PROVIDERS: ADMIT Internal Medicine Nephrology; ATTEND Internal Medicine Nephrology
PROC: 0TC68ZZ Extirpation of Matter from Right Ureter, Via Natural or Artificial Opening Endoscopic (ICD-10-PCS; principal; 2017-03-19 12:30)
DX: N20.1 Calculus of ureter (principal); N43.3 Hydrocele, unspecified; N50.3 Cyst of epididymis